=== PATIENT | male | born 1955 | race Caucasian/White ===

== ENCOUNTER 2017-10-25 08:32 | Inpatient (IN) | payer OTHER ==
[~2017-10-25] VITALS: Ht 188 cm; Wt 72.5 kg
[~2017-10-25 08:32] MED LIST: BACT800T5 PO; CEPH500C3 PO; LITH450 PO
[2017-10-25 08:42] VITALS: BP 215/111; PULSE 118; RESP 16; TEMP 99; O2SAT 95
[2017-10-25 09:29] VITALS: O2SAT 100
--- NOTE | 2017-10-25 09:38 | PD ---
HPI Chief Complaint: Psychiatric Symptoms Time Seen by Provider: 09:23 Travel History International Travel<30 days: No Contact w/Intl Traveler<30days: No Traveled to known affect area: No History of Present Illness HPI The patient is a 62-year-old male who presents to the emergency department for insomnia and anxiety. The patient has a history of bipolar affective disorder, has been off of lithium for 1-1/2 years. The patient was doing well until several months ago when he developed increasing anxiety. He notes inability to sleep for approximately 1 week with increasing anxiety. He denies any suicidal or homicidal ideation. He denies any alcohol ingestion, does use marijuana occasionally and used one "strip" of Suboxone earlier this week. He does have a history of pill abuse, but denies any history of IV drug abuse. He denies any hallucinations or delusions, however, states since the insomnia started with inability to sleep for 1 week the colors and the TV appeared different. He does not currently see a psychiatrist or primary physician on an outpatient basis. He denies any chest pain or shortness of breath. Symptoms are moderate, possibly exacerbated by history of bipolar affective disorder and anxiety. PFSH Past Medical History Asthma: No Autoimmune Disease: No Blood Disorders: No Bipolar Disorder: Yes Anxiety: Yes Depression: Yes Cardiovascular Problems: Yes COPD: No Cerebrovascular Accident: No Diminished Hearing: No Endocrine: No Genitourinary: No Immune Disorder: No Musculoskeletal: Yes (HX FX PELVIS, FX RIGHT ARM) Neurologic: No Psychiatric: Yes (SCHIZOAFFECTIVE ) Reproductive: No Respiratory: No Integumentary: Yes (CONTACT DERMATITIS) Migraines: No Pneumonia: Yes Sickle Cell Disease: No Sleep Apnea: No Thyroid Disease: No Past Surgical History Abdominal Surgery: No Cardiac Surgery: No Ear Surgery: No Endocrine Surgery: No Eye Surgery: No Genitourinary Surgery: No Gynecologic Surgery: No Oral Surgery: No Thoracic Surgery: No Other Surgery: Yes Social History Alcohol Use: No (DENIES) Tobacco Use: Yes Substance Use: No (DENIES) Allergies-Medications (Allergen,Severity, Reaction): Coded Allergies: No Known Allergies (Verified Adverse Reaction, Unknown, 10/25/17) Reported Meds & Prescriptions Reported Meds & Active Scripts Active Review of Systems Except as stated in HPI: all other systems reviewed are Neg HENT: No: Lightheadedness Cardiovascular: No: Chest Pain or Discomfort Respiratory: No: Shortness of Breath Gastrointestinal: No: Nausea, Vomiting, Abdominal Pain Psychiatric: Positive: Anxiety, Mood Disorder, Substance Abuse (Occasional marijuana use), Other (Insomnia), No: Suicidal Ideations, Homicidal Ideation Physical Exam Narrative GENERAL: Awake, alert, pleasant 62-year-old male who appears his stated age and is in no acute respiratory distress. Mildly agitated and anxious. SKIN: Focused skin assessment warm/dry. HEAD: Atraumatic. Normocephalic. EYES: Mild injection. No icterus noted. ENT: No nasal bleeding or discharge. Mucous membranes pink and moist. NECK: Trachea midline. No JVD. CARDIOVASCULAR: Regular, tachycardic with a heart rate of 115. RESPIRATORY: No accessory muscle use. Clear to auscultation. Breath sounds equal bilaterally. GASTROINTESTINAL: Abdomen soft, non-tender, nondistended. No rebound tenderness. MUSCULOSKELETAL: No obvious deformities. No clubbing. No cyanosis. No edema. NEUROLOGICAL: Awake and alert. No obvious cranial nerve deficits. Motor grossly within normal limits. Normal speech. Nonfocal. PSYCHIATRIC: Appears anxious. Data Data Last Documented VS Vital Signs Date Time Temp Pulse Resp B/P (MAP) Pulse Ox O2 Delivery O2 Flow Rate FiO2 10/25/17 10:34 103 16 160/96 (117) 93 Room Air 10/25/17 08:42 99.0 Orders Orders Complete Blood Count With Diff (10/25/17 09:13) Comprehensive Metabolic Panel (10/25/17 09:13) Psych Screen (10/25/17 09:13) Drug Screen, Random Urine (10/25/17 09:13) Alcohol (Ethanol) (10/25/17 09:13) Electrocardiogram (10/25/17 09:13) Ecg Monitoring (10/25/17 09:13) Oximetry (10/25/17 09:13) Lorazepam Inj (Ativan Inj) (10/25/17 09:45) Thyroid Stimulating Hormone (10/25/17 09:38) Lorazepam Inj (Ativan Inj) (10/25/17 10:45) Labs Laboratory Tests Test 10/25/17 09:40 White Blood Count 9.7 TH/MM3 Red Blood Count 5.17 MIL/MM3 Hemoglobin 17.0 GM/DL Hematocrit 48.3 % Mean Corpuscular Volume 93.3 FL Mean Corpuscular Hemoglobin 32.9 PG Mean Corpuscular Hemoglobin Concent 35.2 % Red Cell Distribution Width 13.1 % Platelet Count 184 TH/MM3 Mean Platelet Volume 8.7 FL Neutrophils (%) (Auto) 71.7 % Lymphocytes (%) (Auto) 18.1 % Monocytes (%) (Auto) 9.9 % Eosinophils (%) (Auto) 0.1 % Basophils (%) (Auto) 0.2 % Neutrophils # (Auto) 6.9 TH/MM3 Lymphocytes # (Auto) 1.7 TH/MM3 Monocytes # (Auto) 1.0 TH/MM3 Eosinophils # (Auto) 0.0 TH/MM3 Basophils # (Auto) 0.0 TH/MM3 CBC Comment DIFF FINAL Differential Comment Blood Urea Nitrogen 9 MG/DL Creatinine 0.82 MG/DL Random Glucose 118 MG/DL Total Protein 8.6 GM/DL Albumin 4.2 GM/DL Calcium Level 9.4 MG/DL Alkaline Phosphatase 88 U/L Aspartate Amino Transf (AST/SGOT) 28 U/L Alanine Aminotransferase (ALT/SGPT) 26 U/L Total Bilirubin 0.7 MG/DL Sodium Level 137 MEQ/L Potassium Level 3.5 MEQ/L Chloride Level 100 MEQ/L Carbon Dioxide Level 29.3 MEQ/L Anion Gap 8 MEQ/L Estimat Glomerular Filtration Rate 96 ML/MIN Thyroid Stimulating Hormone 3rd Gen 0.581 uIU/ML Ethyl Alcohol Level LESS THAN 3 MG/DL MDM Medical Decision Making Medical Screen Exam Complete: Yes Emergency Medical Condition: Yes Medical Record Reviewed: Yes Interpretation(s) Laboratory Tests Test 10/25/17 09:40 White Blood Count 9.7 TH/MM3 Red Blood Count 5.17 MIL/MM3 Hemoglobin 17.0 GM/DL Hematocrit 48.3 % Mean Corpuscular Volume 93.3 FL Mean Corpuscular Hemoglobin 32.9 PG Mean Corpuscular Hemoglobin Concent 35.2 % Red Cell Distribution Width 13.1 % Platelet Count 184 TH/MM3 Mean Platelet Volume 8.7 FL Neutrophils (%) (Auto) 71.7 % Lymphocytes (%) (Auto) 18.1 % Monocytes (%) (Auto) 9.9 % Eosinophils (%) (Auto) 0.1 % Basophils (%) (Auto) 0.2 % Neutrophils # (Auto) 6.9 TH/MM3 Lymphocytes # (Auto) 1.7 TH/MM3 Monocytes # (Auto) 1.0 TH/MM3 Eosinophils # (Auto) 0.0 TH/MM3 Basophils # (Auto) 0.0 TH/MM3 CBC Comment DIFF FINAL Differential Comment Blood Urea Nitrogen 9 MG/DL Creatinine 0.82 MG/DL Random Glucose 118 MG/DL Total Protein 8.6 GM/DL Albumin 4.2 GM/DL Calcium Level 9.4 MG/DL Alkaline Phosphatase 88 U/L Aspartate Amino Transf (AST/SGOT) 28 U/L Alanine Aminotransferase (ALT/SGPT) 26 U/L Total Bilirubin 0.7 MG/DL Sodium Level 137 MEQ/L Potassium Level 3.5 MEQ/L Chloride Level 100 MEQ/L Carbon Dioxide Level 29.3 MEQ/L Anion Gap 8 MEQ/L Estimat Glomerular Filtration Rate 96 ML/MIN Thyroid Stimulating Hormone 3rd Gen 0.581 uIU/ML Ethyl Alcohol Level LESS THAN 3 MG/DL Differential Diagnosis Differential diagnosis includes bipolar affective disorder, schizoaffective disorder, anxiety, insomnia, sympathomimetic crisis, hyperthyroidism. Narrative Course IV was established, labs were drawn and sent, and the patient was placed on cardiac telemetry monitoring and continuous pulse oximetry monitoring. The patient was administered Ativan 1 mg intravenously. TSH was sent to lab. Psychiatric screen was ordered. Labs are unremarkable. Disposition as per psychiatry. Diagnosis Primary Impression: Bipolar disorder Qualified Codes: F31.9 - Bipolar disorder, unspecified Additional Impression: Insomnia Qualified Codes: G47.00 - Insomnia, unspecified Condition: Stable Curly Andrews MD Oct 25, 2017 09:38
[2017-10-25] MEDS ORDERED: LORazepam 2 MG/ML VIAL IV PUSH ONE ×2 (09:45→10:45)
[2017-10-25 10:08] LABS: AUTOMATED NEUTROPHIL # 6.9 TH/MM3 (1.8-7.7); BASOPHIL % 0.2 % (0.0-2.0); EOSINOPHIL % 0.1 % (0.0-4.0); HEMATOCRIT 48.3 % (39.0-51.0); LYMPH % 18.1 % (9.0-44.0); LYMPHOCYTE # 1.7 TH/MM3 (1.0-4.8); MEAN CELL VOLUME 93.3 FL (80.0-100.0); MEAN CORPUSCULAR HEMOGLOBIN 32.9 PG (27.0-34.0); MEAN CORPUSCULAR HGB CONC 35.2 % (32.0-36.0); MEAN PLATELET VOLUME 8.7 FL (7.0-11.0); MONO % 9.9 % (0.0-8.0); NEUT % 71.7 % (16.0-70.0); PLATELET COUNT 184 TH/MM3 (150-450); RED BLOOD COUNT 5.17 MIL/MM3 (4.50-5.90); RED CELL DISTRIBUTION WIDTH 13.1 % (11.6-17.2); WHITE BLOOD COUNT 9.7 TH/MM3 (4.0-11.0)
[2017-10-25 10:23] LABS: ALBUMIN 4.2 GM/DL (3.4-5.0); ALT (GPT) 26 U/L (12-78); AST (GOT) 28 U/L (15-37); BICARBONATE 29.3 MEQ/L (21.0-32.0); BLOOD UREA NITROGEN 9 MG/DL (7-18); CALCIUM 9.4 MG/DL (8.5-10.1); CHLORIDE 100 MEQ/L (98-107); CREATININE 0.82 MG/DL (0.60-1.30); GLOMERULAR FILTRATION RATE 96 ML/MIN (>89); GLUCOSE,RANDOM 118 MG/DL (74-106); SODIUM (NA) 137 MEQ/L (136-145)
[2017-10-25 10:26] LABS: ALKALINE PHOSPHATASE 88 U/L (45-117); TOTAL BILIRUBIN ADULT 0.7 MG/DL (0.2-1.0); TOTAL PROTEIN 8.6 GM/DL (6.4-8.2)
[2017-10-25 10:34] VITALS: BP 160/96; PULSE 103; RESP 16; O2SAT 93
[2017-10-25 18:15] VITALS: BP 160/77; PULSE 93; RESP 22; O2SAT 95
[2017-10-25] MEDS ORDERED: LORazepam 1 MG TAB PO ONE (19:30)
[2017-10-25] MEDS ORDERED: ACETAMINOPHEN 325 MG TAB PO ONE (23:30)
[2017-10-26 02:16] VITALS: BP 150/74; PULSE 72; RESP 16; O2SAT 95
[2017-10-26 07:00] VITALS: BP 138/74; PULSE 77; RESP 16; TEMP 98; O2SAT 96
[2017-10-26] MEDS ORDERED: LORazepam 1 MG TAB PO ONE (08:30)
[2017-10-26] MEDS ORDERED: MAGNESIUM HYDROXIDE SUSP 30 ML CUP PO PRN (09:15)
[2017-10-26] MEDS ORDERED: ALUMINUM/MAGNESIUM/SIMETH 30 ML CUP PO PRN (09:15)
[2017-10-26] MEDS ORDERED: hydrOXYzine HCL 50 MG TAB PO PRN (09:15)
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
[2017-10-26] MEDS: NICOTINE 21 MG/24 HR PATCH T-DERMAL SCH (12:18)
[2017-10-26] MEDS: REMOVE OLD PATCH T-DERMAL SCH (12:26)
[2017-10-26 13:44] VITALS: BP 155/90; PULSE 81; RESP 18; TEMP 98.4; O2SAT 96
[2017-10-26] MEDS: ACETAMINOPHEN 325 MG TAB PO PRN (17:46)
[2017-10-26 17:47] VITALS: BP 160/90; PULSE 98; RESP 18; TEMP 98.4; O2SAT 94
[2017-10-27 07:14] VITALS: BP 161/89; PULSE 85; RESP 18; TEMP 98.2; O2SAT 96
[2017-10-27] MEDS: NICOTINE 21 MG/24 HR PATCH T-DERMAL SCH (08:30)
[2017-10-27] MEDS ORDERED: LORazepam 2 MG/ML VIAL IM PRN (10:15)
--- NOTE | 2017-10-27 10:15 | HHI.HP ---
Provisional Diagnosis Admission Date Oct 26, 2017 at 09:13 [place]. 1. Bipolar disorder, presently depressed, severe, without psychotic features, with anxious distress Rule out comorbid anxiety disorder or anxiety disorder due to a substance 2. Cannabis use, rule out use disorder [place]. Deferred Certification of Person's Competence To Provide Express and Informed Consent I have personally examined Shane Beverly , a person being served at [facility] on, Oct 27, 2017 10:15. Express and informed consent means consent voluntarily given in writing, by a competent person, after sufficient explanation and disclosure of the subject matter involved to enable the person to make a knowing and willful decision without any element of force, fraud, deceit, duress, or other form of constraint or coercion. This person is 18 years of age or older, is not now known to be incompetent to consent to treatment with a guardian advocate, and does not have a health care surrogate or proxy currently making medical treatment decisions. I have found this person to be one of the following: [x] Competent to provide express and informed consent, as defined above, for voluntary admission to this facility and is competent to provide express and informed consent for treatment. He/she has the consistent capacity to make well reasoned, willful, and knowing decisions concerning his or her medical or mental health treatment. The person fully and consistently understands the purpose of the admission for examination/placement and is fully capable of personally exercising all rights assured under [place] Incompetent to provide express and informed consent to voluntary admission, and this is incompetent to provide express and informed consent to treatment. The person must be transferred to involuntary status and a petition for a guardian advocate filed with the Circuit Court. [] Refusing to provide express and informed consent to voluntary admission but is competent to provide express and informed consent for treatment. The person must be discharged or transferred to involuntary status. Form shall be completed within 24 hours of a person's arrival at the receiving facility and filed in the clinical record of each person: 1. Admitted on a voluntary basis 2. Permitted to provide express and informed consent to his/her own treatment 3. Allowed to transfer from involuntary to voluntary status 4. Prior to permitting a person to consent to his or her own treatment after having been previously found incompetent to consent to treatment. History of Present Illness Capacity: Has Capacity Psych Chief Complaint: Depression, anxiety HPI Mr. Beverly is a 62-year-old male with a reported history of bipolar disorder who presented to the emergency department voluntarily complaining of insomnia and anxiety. Patient was evaluated by the psychiatric nurse practitioner in the emergency department. Reviewing the electronic medical record, I note the patient was admitted here most recently under my care in April 2016 and left AGAINST MEDICAL ADVICE at that time. Patient seen and examined. Chart reviewed. Case discussed with nursing staff. On my examination today, the patient presents as extremely anxious and dysphoric. He is visibly shaking and tearful secondary to these factors. He reports that 9 days ago without clear trigger he began feeling increasingly anxious and depressed. Course has been worsening. He reports episodes of panic as well as more generalized anxiety. He endorses anhedonia and sleep disturbance. He reports that when he does sleep he has "weird dreams" and chills. He reports that he feels depressed and "pretty scared" presently, although he cannot say what he is scared of. He denies any SI or HI. No hypomanic or manic symptoms. He denies AVH. I can elicit no delusional material. Remainder of the psychiatric ROS is negative. No acute physical complaints. Past psychiatric history: The patient reports a history of bipolar disorder. He was previously on lithium but has been off psychotropic medications for the last year and a half. He is not currently under the care of a psychiatrist. His most recent psychiatric admission was here at [facility]. He denies a history of suicide attempts. Family history: The patient denies a family history of serious mental illness or suicide. Chemical dependency history: The patient admits to ongoing use of cannabis. No other substance use. Social history: Patient lives with his sister and mother. He has a daughter. He is high school educated. 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 He denies any or legal history. He denies any access to guns or firearms. He denies any history of physical, verbal or sexual abuse. Review of Systems Except as stated in HPI: all other systems reviewed are Neg Past Family Social History Coded Allergies: No Known Allergies (Verified Allergy, Unknown, 10/26/17) Past Medical History Patient denies any past medical history. Current Medications Medications (Trade) Dose Ordered Sig/Noa Route Start Time Stop Time Status Last Admin (Tylenol) 650 mg Q4H PRN PO 10/26/17 09:15 10/26/17 17:46 (Milk Of Magnesia Liq) 30 ml DAILY PRN PO 10/26/17 09:15 (Mag-Al Plus Susp Liq) 30 ml Q6H PRN PO 10/26/17 09:15 (Habitrol 21 Mg Patch.24 Hr) 1 patch DAILY T-DERMAL 10/26/17 09:15 10/27/17 08:30 (Atarax) 50 mg Q6H PRN PO 10/26/17 09:15 Future Hold Miscellaneous Information 1 DAILY T-DERMAL 10/27/17 09:00 Patient's Strengths (min. 2) In a monitored setting. Verbally fluent. Physical Exam Physical exam completed by ED provider. On my examination today, the patient appears to be in no acute physical distress. He is fairly tremulous, reportedly secondary to anxiety. No other motor abnormalities noted. I do note scars on left nose and cheek, reportedly from a history of skin cancer. Labs and vitals reviewed: Vital Signs Vital Signs Date Time Temp Pulse Resp B/P (MAP) Pulse Ox O2 Delivery O2 Flow Rate FiO2 10/27/17 07:14 98.2 85 18 161/89 (113) 96 10/26/17 07:00 Room Air Lab Results Item Value Date Time White Blood Count 9.7 TH/MM3 10/25/17 0940 Hemoglobin 17.0 GM/DL 10/25/17 0940 Platelet Count 184 TH/MM3 10/25/17 0940 Sodium Level 137 MEQ/L 10/27/17 0845 Potassium Level 3.7 MEQ/L 10/27/17 0845 Chloride Level 100 MEQ/L 10/27/17 0845 Carbon Dioxide Level 29.7 MEQ/L 10/27/17 0845 Blood Urea Nitrogen 17 MG/DL 10/27/17 0845 Creatinine 0.87 MG/DL 10/27/17 0845 Estimat Glomerular Filtration Rate 89 ML/MIN 10/27/17 0845 Aspartate Amino Transf (AST/SGOT) 28 U/L 10/25/17 0940 Alanine Aminotransferase (ALT/SGPT) 26 U/L 10/25/17 0940 Alkaline Phosphatase 88 U/L 10/25/17 0940 Thyroid Stimulating Hormone 3rd Gen 0.581 uIU/ML 10/25/17 0940 Urine Cannabinoids Screen POS H 10/26/17 0620 Ethyl Alcohol Level LESS THAN 3 MG/DL 10/25/17 0940 EKG sinus tach with QTcH 407ms, not prolonged. Mental Status Examination Appearance: Appropriate Consciousness: Alert Orientation: x4 Motor Activity: Normal gait Speech: Rapid Language: Adequate Fund of Knowledge: Adequate Attention and Concentration: Adequate Memory: Unremarkable Mood: Anxious, Other (depressed) Affect: Anxious, Other (tearful and dysphoric) Thought Process & Associations: Intact Thought Content: Appropriate Hallucination Type: None Delusion Type: None Suicidal Ideation: No Suicidal Plan: No Suicidal Intention: No Homicidal Ideation: No Homicidal Plan: No Homicidal Intention: No Insight: Adequate Judgment: Adequate Assessment & Plan Problem List: (1) Severe bipolar I disorder, most recent episode depressed with anxious distress ICD Codes: F31.4 - Bipolar disorder, current episode depressed, severe, without psychotic features (2) Use of cannabis ICD Codes: F12.90 - Cannabis use, unspecified, uncomplicated Assessment & Plan 62-year-old male with psychiatric history as detailed above presently voluntarily admitted to the inpatient psychiatric unit. On my examination today , the patient reports 9 days of worsening depression and anxiety without obvious trigger. Presently, the patient is extremely dysphoric and anxious, although he is denying SI or HI. He reports that he has never had this degree of anxious distress in the setting of a mood episode before, nor does he suffer from anxiety typically. Differential diagnosis includes bipolar disorder, presently depressed with anxious distress, comorbid anxiety disorder of recent onset, or anxiety disorder due to a substance, namely cannabis. TSH wnl. 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 Patient requires psychiatric hospitalization at this time for observation and stabilization. Admit inpatient. Voluntary status. Start lithium SR 450mg BID with plans to check a lithium level after the weekend. GFR and TSH wnl. Given the patient's acute anxious distress in setting of mood episode, will also start Seroquel 25mg BID, which could be titrated over the weekend to effect. Ativan as needed for anxiety, trazodone as needed for insomnia, Cogentin as needed for EPS. R/B/ A for medications discussed with patient. Consult to the hospitalist for arrhythmia noted on EKG. Vitals every shift. Counselor to see. Disposition planning. Estimated length of stay: 5-7 days. Discharge Planning Pending psychiatric stabilization. Request HC Surrog/Guard Advoc?: No Allan Mondragon MD Oct 27, 2017 10:15
[2017-10-27 10:21] LABS: BICARBONATE 29.7 MEQ/L (21.0-32.0); BLOOD UREA NITROGEN 17 MG/DL (7-18); CALCIUM 9.5 MG/DL (8.5-10.1); CHLORIDE 100 MEQ/L (98-107); CREATININE 0.87 MG/DL (0.60-1.30); GLOMERULAR FILTRATION RATE 89 ML/MIN (>89); GLUCOSE,RANDOM 101 MG/DL (74-106); SODIUM (NA) 137 MEQ/L (136-145)
[2017-10-27 10:22] LABS: CHOLESTEROL 178 MG/DL (120-200)
[2017-10-27 10:25] LABS: CHOLESTEROL/ HDL RATIO 2.74 RATIO; HDL CHOLESTEROL 64.9 MG/DL (40.0-60.0); LDL CHOLESTEROL 98 MG/DL (0-99); TRIGLYCERIDES 78 MG/DL (42-150)
[2017-10-27] MEDS: LITHIUM CARBONATE 450 MG CONTROLLED RELEASE TAB PO SCH ×2 (11:54→18:00)
[2017-10-27] MEDS: LORazepam 1 MG TAB PO PRN (11:54)
[2017-10-27] MEDS ORDERED: BENZTROPINE MESYLATE 2 MG/2 ML VIAL IM PRN (12:00)
[2017-10-27] MEDS ORDERED: BENZTROPINE MESYLATE 1 MG TAB PO PRN (12:00)
[2017-10-27 16:34] LABS: HEMOGLOBIN A1C 5.2 % (4.3-6.0)
[2017-10-27 18:45] VITALS: BP 145/88; RESP 16; TEMP 97.9; O2SAT 96
--- NOTE | 2017-10-27 20:21 | PD.CONS ---
HPI Service [facility] Hospitalists Consult Requested By Psychiatry Reason for Consult Abnormal EKG Primary Care Physician No Primary Care Physician Diagnoses: History of Present Illness Mr. Beverly is a pleasant 62-year-old male with a depression, bipolar disorder who was admitted psychiatry unit due to severe bipolar disorder along with depression and anxiety. Hospitalist service was consulted for abnormal EKG. At the time of this interview, patient denies any chest pain, shortness of breath, fever or chills. He denies any cough, abdominal pain. No changes in bowel or bladder habits. Review of Systems Except as stated in HPI: all other systems reviewed are Neg Past Family Social History Allergies: Coded Allergies: No Known Allergies (Verified Allergy, Unknown, 10/26/17) Past Medical History Depression, panic attack, insomnia, contact dermatitis. Past Surgical History Right knee surgery in 1974 Reported Medications Current Medications Medications (Trade) Dose Ordered Sig/Noa Route Start Time Stop Time Status Last Admin (Tylenol) 650 mg Q4H PRN PO 10/26/17 09:15 10/26/17 17:46 (Milk Of Magnesia Liq) 30 ml DAILY PRN PO 10/26/17 09:15 (Mag-Al Plus Susp Liq) 30 ml Q6H PRN PO 10/26/17 09:15 (Habitrol 21 Mg Patch.24 Hr) 1 patch DAILY T-DERMAL 10/26/17 09:15 10/27/17 08:30 Miscellaneous Information 1 DAILY T-DERMAL 10/27/17 09:00 (Ativan) 1 mg Q6H PRN PO 10/27/17 10:15 10/27/17 11:54 (Ativan Inj) 1 mg Q6H PRN IM 10/27/17 10:15 (Eskalith Sr) 450 mg BIDPC PO 10/27/17 10:30 10/27/17 18:00 (SEROquel) 25 mg BID PO 10/27/17 21:00 (Desyrel) 50 mg HS PRN PO 10/27/17 21:00 (Cogentin) 1 mg Q12HR PRN PO 10/27/17 12:00 (Cogentin Inj) 1 mg Q12HR PRN IM 10/27/17 12:00 Family History Father was alcoholic. Mother is 92 and in good health. Social History Patient smokes about 10 cigarettes a day. He admits to smoking marijuana. Denies using any illicit drugs or alcohol. Physical Exam Vital Signs Vital Signs Date Time Temp Pulse Resp B/P (MAP) Pulse Ox O2 Delivery O2 Flow Rate FiO2 10/27/17 18:45 97.9 16 145/88 (107) 96 10/27/17 07:14 98.2 85 18 161/89 (113) 96 Physical Exam GENERAL: This is a well-nourished, well-developed patient, in no apparent distress. SKIN: No rashes, ecchymoses or lesions. Warm and dry. HEAD: Atraumatic. Normocephalic. No temporal or scalp tenderness. EYES: Pupils equal round and reactive. No injection or drainage. ENT: Nose without bleeding, purulent drainage or septal hematoma. Airway patent. NECK: Trachea midline. No lymphadenopathy. Supple, nontender, no meningeal signs. CARDIOVASCULAR: Regular rate and rhythm without murmurs, gallops, or rubs. No JVD. RESPIRATORY: Clear to auscultation. Breath sounds equal bilaterally. No wheezes , rales, or rhonchi. GASTROINTESTINAL: Abdomen soft, non-tender, nondistended. No guarding. MUSCULOSKELETAL: Extremities without clubbing, cyanosis, or edema. NEUROLOGICAL: Awake and alert. Cranial nerves II through XII intact. No focal neurological deficits. Normal speech. Laboratory Laboratory Tests Test 10/27/17 08:45 Blood Urea Nitrogen 17 Creatinine 0.87 Random Glucose 101 Calcium Level 9.5 Sodium Level 137 Potassium Level 3.7 Chloride Level 100 Carbon Dioxide Level 29.7 Anion Gap 7 Estimat Glomerular Filtration Rate 89 Hemoglobin A1c 5.2 Triglycerides Level 78 Cholesterol Level 178 LDL Cholesterol 98 HDL Cholesterol 64.9 Cholesterol/HDL Ratio 2.74 Result Diagram: 10/25/17 0940 10/27/17 0845 Assessment and Plan Problem List: (1) Sinus tachycardia by electrocardiogram ICD Code: R00.0 - Tachycardia, unspecified (2) Severe bipolar I disorder, most recent episode depressed with anxious distress ICD Code: F31.4 - Bipolar disorder, current episode depressed, severe, without psychotic features Assessment and Plan Mr. Beverly is a pleasant 62-year-old male with a history of bipolar disorder, panic attack who was admitted to the psychiatric unit due to depression, panic attack, insomnia. Hospitalist service was consulted for abnormal EKG. -Sinus tachycardia -Sinus tachycardia is likely due to anxiety and/or physiologic. -Some supraventricular premature complexes present. Treatment is not necessary. Patient is asymptomatic -We will check magnesium level. Ideally would like to keep potassium around 4 and magnesium around 2.0. -We will provide potassium supplement 20 mEq once a day for 3 days. -We will provide magnesium supplement if magnesium level below 2.0. -TSH is within normal range. -BMP, Mg level on 10/31/2017. -IF tachycardia is persistent, we may consider beta estrada such as atenolol or metoprolol. -Depression, anxiety -Bipolar disorder -Management per psychiatry. Thank you for the consult. We will continue to follow this patient with you. Gaviota Bermudez DO Oct 27, 2017 20:21
[2017-10-27] MEDS: QUEtiapine FUMARATE 25 MG TAB PO SCH (21:20)
[2017-10-27] MEDS: traZODone HCL 50 MG TAB PO PRN (21:20)
[2017-10-28 06:00] VITALS: BP 157/100; PULSE 91; RESP 18; TEMP 98; O2SAT 95
[2017-10-28] MEDS: POTASSIUM CHLORIDE 20 MEQ CONTROLLED RELEASE TAB PO SCH (08:29)
[2017-10-28] MEDS: QUEtiapine FUMARATE 25 MG TAB PO SCH ×2 (08:29→21:30)
[2017-10-28] MEDS: LITHIUM CARBONATE 450 MG CONTROLLED RELEASE TAB PO SCH ×2 (08:29→18:04)
[2017-10-28] MEDS: REMOVE OLD PATCH T-DERMAL SCH (09:00)
[2017-10-28] MEDS: NICOTINE 21 MG/24 HR PATCH T-DERMAL SCH (09:00)
[2017-10-28 11:30] VITALS: BP 148/90; PULSE 92; RESP 18
--- NOTE | 2017-10-28 15:03 | HHI.PR ---
Subjective Remarks Follow-up visit tachycardia, elevated BP. Patient seen and examined today. Patient states he is doing well however his anxiety has been ongoing. States that he has vivid dreams he was started on lithium recently. Voices pressured, speech is fast. Denies pain and discomfort. Denies SOB/ dyspnea. Denies chest pain, palpitations, headaches, dizziness. Denies fevers, chills, n/v/d. Denies dysuria. Objective Vitals Vital Signs Date Time Temp Pulse Resp B/P (MAP) Pulse Ox O2 Delivery O2 Flow Rate FiO2 10/28/17 11:30 92 18 148/90 (109) 10/28/17 06:00 98.0 91 18 157/100 (119) 95 10/27/17 18:45 97.9 16 145/88 (107) 96 I/O 10/27/17 10/27/17 10/27/17 10/28/17 10/28/17 10/28/17 07:00 15:00 23:00 07:00 15:00 23:00 Intake Total 360 ml Balance 360 ml Intake Oral 360 ml # Voids 2 Result Diagram: 10/25/17 0940 10/27/17 0845 Objective Remarks GENERAL: This is a well-nourished, well-developed patient, in no apparent distress. SKIN: Warm and dry. HEENT: Normocephalic. Pupils equal round and reactive. Nose without bleeding. Airway patent. NECK: Trachea midline. CARDIOVASCULAR: Tachycardia without murmurs, gallops, or rubs. RESPIRATORY: Clear to auscultation. Breath sounds equal bilaterally. No wheezes , rales, or rhonchi. GASTROINTESTINAL: Abdomen soft, non-tender, nondistended. Bowel Sounds normoactive x4. MUSCULOSKELETAL: Extremities without clubbing, cyanosis, or edema. NEUROLOGICAL: Awake and alert. Oriented to time, place, person. No focal neuro deficit. Moves all extremities. Pressured, fast speech. A/P Problem List: (1) Sinus tachycardia by electrocardiogram ICD Code: R00.0 - Tachycardia, unspecified (2) Severe bipolar I disorder, most recent episode depressed with anxious distress ICD Code: F31.4 - Bipolar disorder, current episode depressed, severe, without psychotic features Assessment and Plan 62-year-old male with a history of bipolar disorder, panic attack who was admitted to the psychiatric unit due to depression, panic attack, insomnia. Hospitalist service was consulted for abnormal EKG. Sinus tachycardia Elevated BP -EKG Some supraventricular premature complexes present. Treatment is not necessary. Patient is asymptomatic -Potassium supplement 20 mEq once a day for 3 days. -TSH, Magnesium, potassium levels are within normal -Tachycardia continues to be persistent this is probably related to anxiety and possible underlying HTN. -Will start lisinopril 5mg, metoprolol 12.5 mg twice daily this would also help elevated BP. Clonidine PRN -Monitor BP trend Depression, anxiety Bipolar disorder -Management per psychiatry. -Complaints of vivid dreams, started on lithium. Discussed with nursing. DVT prop ambulatory Ayaka Pedersen Oct 28, 2017 15:03
[2017-10-28] MEDS ORDERED: PILL SPLITTER OTHER PRN (15:15)
--- NOTE | 2017-10-28 15:22 | HHI.PYPN ---
Subjective Chief Complaint: Depression, anxiety Remarks Pt seen and discussed with staff. He has been depressed and very anxious. He reports that he feels both depressed and manic. He denies side effects. He c/o of poor sleep. No SI/HI Mental Status Examination Appearance: Appropriate Consciousness: Alert Orientation: x4 Motor Activity: Normal gait Speech: Rapid Language: Adequate Fund of Knowledge: Adequate Attention and Concentration: Adequate Memory: Unremarkable Mood: Anxious, Other (depressed) Affect: Anxious, Other (tearful and dysphoric) Thought Process & Associations: Intact Thought Content: Appropriate Hallucination Type: None Delusion Type: None Suicidal Ideation: No Suicidal Plan: No Suicidal Intention: No Homicidal Ideation: No Homicidal Plan: No Homicidal Intention: No Insight: Adequate Judgment: Adequate Results Vitals/IOs Vital Signs Date Time Temp Pulse Resp B/P (MAP) Pulse Ox O2 Delivery O2 Flow Rate FiO2 10/28/17 11:30 92 18 148/90 (109) 10/28/17 06:00 98.0 95 10/26/17 07:00 Room Air Assessment & Plan Problem List: (1) Severe bipolar I disorder, most recent episode depressed with anxious distress ICD Codes: F31.4 - Bipolar disorder, current episode depressed, severe, without psychotic features (2) Use of cannabis ICD Codes: F12.90 - Cannabis use, unspecified, uncomplicated Assessment & Plan Continue titration schedule. Estimated LOS: days Justification for Cont. Inpt. risk of decompensation Request HC Surrog/Guard Advoc?: No Luisa Macias MD Oct 28, 2017 15:22
[2017-10-28] MEDS ORDERED: METOPROLOL TARTRATE 25 MG TAB PO ONE ×2 (17:15→18:00)
[2017-10-28] MEDS ORDERED: cloNIDine HCL 0.1 MG TAB PO PRN (17:15)
[2017-10-28 18:05] VITALS: BP 183/100; PULSE 89; RESP 16; TEMP 97.9; O2SAT 96
[2017-10-28 19:50] VITALS: BP 173/103
[2017-10-28] MEDS: METOPROLOL TARTRATE 25 MG TAB PO SCH (21:30)
--- NOTE | 2017-10-28 23:23 | EKG ---
Date Performed: 10/27/2017 Time Performed: 10:09:41 PTAGE: 62 years EKG: SINUS TACHYCARDIA WITH OCCASIONAL SUPRAVENTRICULAR PREMATURE COMPLEXES ABNORMAL RHYTHM ECG PREVIOUS TRACING : 01/20/2005 09.16 Since the prior tracing, there has been no significant pacheco DOCTOR: Davy Mix Interpretating Date/Time 10/28/2017 23:22:37
[2017-10-29 01:31] VITALS: BP 130/70; PULSE 65
[2017-10-29] MEDS: traZODone HCL 50 MG TAB PO PRN ×2 (01:31→21:08)
[2017-10-29] MEDS: ACETAMINOPHEN 325 MG TAB PO PRN ×2 (01:32→21:09)
[2017-10-29 06:00] VITALS: BP 128/65; PULSE 65; RESP 17; TEMP 97.5; O2SAT 95
[2017-10-29] MEDS: QUEtiapine FUMARATE 25 MG TAB PO SCH ×2 (08:22→21:09)
[2017-10-29] MEDS: LITHIUM CARBONATE 450 MG CONTROLLED RELEASE TAB PO SCH ×2 (08:22→17:43)
[2017-10-29] MEDS: POTASSIUM CHLORIDE 20 MEQ CONTROLLED RELEASE TAB PO SCH (08:22)
[2017-10-29] MEDS: LISINOPRIL 5 MG TAB PO SCH (08:22)
[2017-10-29] MEDS: METOPROLOL TARTRATE 25 MG TAB PO SCH ×2 (08:23→21:08)
[2017-10-29] MEDS: REMOVE OLD PATCH T-DERMAL SCH (09:00)
[2017-10-29] MEDS: NICOTINE 21 MG/24 HR PATCH T-DERMAL SCH (09:00)
[2017-10-29 09:30] VITALS: BP 133/84; PULSE 82
--- NOTE | 2017-10-29 13:20 | HHI.PR ---
Subjective Remarks Follow-up visit for hypertension and tachycardia. Patient seen and examined today in outside patio, he reports a right leg cramp this morning, none since then. She denies any palpitations, chest pains, lightheadedness, dizziness, nausea, vomiting, headache, diarrhea, SOB or cough. He reports that he is still bored and that he is still depressed. Objective Vitals Vital Signs Date Time Temp Pulse Resp B/P (MAP) Pulse Ox O2 Delivery O2 Flow Rate FiO2 10/29/17 09:30 82 133/84 (100) 10/29/17 06:00 97.5 65 17 128/65 (86) 95 10/29/17 01:31 65 130/70 (90) 10/28/17 19:50 173/103 (126) 10/28/17 18:05 97.9 89 16 183/100 (127) 96 I/O 10/28/17 10/28/17 10/28/17 10/29/17 10/29/17 10/29/17 07:00 15:00 23:00 07:00 15:00 23:00 Intake Total 550 ml Balance 550 ml Intake Oral 550 ml # Voids 2 Result Diagram: 10/25/17 0940 10/27/17 0845 Objective Remarks GENERAL: This is a well-nourished, well-developed patient, in no apparent distress. SKIN: Warm and dry. HEENT: Normocephalic. Pupils equal round and reactive. Nose without bleeding. Airway patent. NECK: Trachea midline. CARDIOVASCULAR: Regular rate and rhythm without murmurs, gallops, or rubs. RESPIRATORY: Clear to auscultation. Breath sounds equal bilaterally. No wheezes , rales, or rhonchi. GASTROINTESTINAL: Abdomen soft, non-tender, nondistended. Bowel Sounds normoactive x4. MUSCULOSKELETAL: Extremities without clubbing, cyanosis, or edema. NEUROLOGICAL: Awake and alert. Oriented to time, place, person. No focal neuro deficit. Moves all extremities. A/P Problem List: (1) Sinus tachycardia by electrocardiogram ICD Code: R00.0 - Tachycardia, unspecified (2) Severe bipolar I disorder, most recent episode depressed with anxious distress ICD Code: F31.4 - Bipolar disorder, current episode depressed, severe, without psychotic features Assessment and Plan 62-year-old male with a history of bipolar disorder, panic attack who was admitted to the psychiatric unit due to depression, panic attack, insomnia. Hospitalist service was consulted for abnormal EKG. Sinus tachycardia Elevated BP -EKG Some supraventricular premature complexes present. Treatment is not necessary. Patient is asymptomatic -Potassium supplement 20 mEq once a day for 3 days. -TSH, Magnesium, potassium levels are within normal -Tachycardia probably related to anxiety and possible underlying HTN. -Continue lisinopril 5mg and metoprolol 12.5 mg BID. Clonidine PRN - HR and BP stable. Depression, anxiety Bipolar disorder -Management per psychiatry. -Complaints of vivid dreams, started on lithium. Discussed with nursing. DVT prop ambulatory [facility] will sign off, please reconsult if needed. Eduardo Alba Oct 29, 2017 13:20
--- NOTE | 2017-10-29 15:51 | HHI.PYPN ---
Subjective Chief Complaint: Depression, anxiety Remarks Pt seen and discussed with staff. He has been out of room more today and less dysphoric.He reports that he slept better with higher dose of seroquel. He c/o of anhedonia and low energy and motivation. Compliant with medications. No SI/HI Mental Status Examination Appearance: Appropriate Consciousness: Alert Orientation: x4 Motor Activity: Normal gait Speech: Rapid Language: Adequate Fund of Knowledge: Adequate Attention and Concentration: Adequate Memory: Unremarkable Mood: Anxious, Other (depressed) Affect: Sad, Anxious Thought Process & Associations: Intact Thought Content: Appropriate Hallucination Type: None Delusion Type: None Suicidal Ideation: No Suicidal Plan: No Suicidal Intention: No Homicidal Ideation: No Homicidal Plan: No Homicidal Intention: No Insight: Fair Judgment: Adequate Results Vitals/IOs Vital Signs Date Time Temp Pulse Resp B/P (MAP) Pulse Ox O2 Delivery O2 Flow Rate FiO2 10/29/17 09:30 82 133/84 (100) 10/29/17 06:00 97.5 17 95 10/26/17 07:00 Room Air Assessment & Plan Problem List: (1) Severe bipolar I disorder, most recent episode depressed with anxious distress ICD Codes: F31.4 - Bipolar disorder, current episode depressed, severe, without psychotic features (2) Use of cannabis ICD Codes: F12.90 - Cannabis use, unspecified, uncomplicated Assessment & Plan Continue current tx plan. Estimated LOS: days Justification for Cont. Inpt. risk of decompensation Request HC Surrog/Guard Advoc?: Luisa Travis MD Oct 29, 2017 15:51
[2017-10-29 16:59] VITALS: BP 126/79; PULSE 83; RESP 18; TEMP 97.7; O2SAT 97
[2017-10-30 05:48] VITALS: BP 91/51; PULSE 68; RESP 18; TEMP 98.2; O2SAT 95
[2017-10-30] MEDS: LITHIUM CARBONATE 450 MG CONTROLLED RELEASE TAB PO SCH ×2 (09:05→18:08)
[2017-10-30] MEDS: POTASSIUM CHLORIDE 20 MEQ CONTROLLED RELEASE TAB PO SCH (09:05)
[2017-10-30] MEDS: QUEtiapine FUMARATE 25 MG TAB PO SCH (09:06)
[2017-10-30] MEDS: NICOTINE 21 MG/24 HR PATCH T-DERMAL SCH (09:06)
[2017-10-30] MEDS: REMOVE OLD PATCH T-DERMAL SCH (09:09)
[2017-10-30] MEDS: LISINOPRIL 5 MG TAB PO SCH (09:11)
[2017-10-30] MEDS: METOPROLOL TARTRATE 25 MG TAB PO SCH ×2 (09:11→20:55)
[2017-10-30] MEDS: LORazepam 1 MG TAB PO PRN (09:21)
[2017-10-30] MEDS: ACETAMINOPHEN 325 MG TAB PO PRN (09:42)
--- NOTE | 2017-10-30 11:48 | HHI.PYPN ---
Subjective Chief Complaint: Depression, anxiety Remarks Patient seen and examined with nurse. Chart reviewed. Case discussed with nursing staff who reports the patient slept poorly overnight and was quite anxious this morning. Case discussed with counselor. On my examination today, the patient continues to say that he feels quite depressed. He says repeatedly "this is not like me" and seems distressed by how depressed he feels. He does have less anxious distress today versus our contact before the weekend. Sleep is reportedly poor, and patient would like to adjust pharmacotherapy to target this. He reports that he is participating in groups and finds them helpful. He denies side effects from medications and is agreeable to titration of Seroquel for mood stabilization and sleep. No physical complaints. Review of Systems Except as stated in HPI: all other systems reviewed are Neg Mental Status Examination Appearance: Appropriate Consciousness: Alert Orientation: x4 Motor Activity: Other (no motor abnormalities noted) Speech: Unremarkable Language: Adequate Fund of Knowledge: Adequate Attention and Concentration: Adequate Memory: Unremarkable Mood: Anxious (decreased today), Other (remains depressed) Affect: Sad Thought Process & Associations: Intact Thought Content: Appropriate Hallucination Type: None Delusion Type: None Suicidal Ideation: No Suicidal Plan: No Suicidal Intention: No Homicidal Ideation: No Homicidal Plan: No Homicidal Intention: No Insight: Adequate Judgment: Adequate Results Labs Labs reviewed. Vitals/IOs Vital Signs Date Time Temp Pulse Resp B/P (MAP) Pulse Ox O2 Delivery O2 Flow Rate FiO2 10/30/17 05:48 98.2 68 18 91/51 (64) 95 10/26/17 07:00 Room Air Assessment & Plan Problem List: (1) Severe bipolar I disorder, most recent episode depressed with anxious distress ICD Codes: F31.4 - Bipolar disorder, current episode depressed, severe, without psychotic features (2) Use of cannabis ICD Codes: F12.90 - Cannabis use, unspecified, uncomplicated Assessment & Plan Titrate Seroquel to 50mg qAM and 100mg qHS for mood stabilization and sleep. Plan for additional titration of this medication to effect and as tolerated. I will additionally replace the patient's trazodone p.r.n. with Seroquel 50mg qHS p.r.n. insomnia. Continue lithium as ordered and check a level in the morning; plan to adjust dose to bring level within the therapeutic range. R/B/A for med changes d/w patient. Continue to monitor on an inpatient unit. Continue other medications and care as ordered. Justification for Cont. Inpt. Medication changes. High risk for decompensation in less restrictive environment. Discharge Planning Pending psychiatric stabilization. Anticipate discharge by the end of the week. Request HC Surrog/Guard Advoc?: No Allan Mondragon MD Oct 30, 2017 11:48
[2017-10-30 15:13] VITALS: BP 157/81
[2017-10-30 15:27] VITALS: BP 157/81; PULSE 103; RESP 18; TEMP 98; O2SAT 100
[2017-10-30] MEDS ORDERED: QUEtiapine FUMARATE 100 MG TAB PO SCH (21:00)
[2017-10-31] MEDS: QUEtiapine FUMARATE 25 MG TAB PO PRN (03:11)
[2017-10-31 06:31] VITALS: BP 169/83; PULSE 76; RESP 17; TEMP 97.8; O2SAT 96
[2017-10-31 08:34] LABS: BICARBONATE 26.6 MEQ/L (21.0-32.0); CALCIUM 10.1 MG/DL (8.5-10.1); CREATININE 0.68 MG/DL (0.60-1.30); MAGNESIUM 2.1 MG/DL (1.5-2.5)
[2017-10-31] MEDS: NICOTINE 21 MG/24 HR PATCH T-DERMAL SCH (09:00)
[2017-10-31] MEDS: QUEtiapine FUMARATE 25 MG TAB PO SCH (09:05)
[2017-10-31] MEDS: METOPROLOL TARTRATE 25 MG TAB PO SCH ×2 (09:06→21:05)
[2017-10-31] MEDS: LISINOPRIL 5 MG TAB PO SCH (09:06)
[2017-10-31] MEDS: LITHIUM CARBONATE 450 MG CONTROLLED RELEASE TAB PO SCH (09:06)
[2017-10-31] MEDS: REMOVE OLD PATCH T-DERMAL SCH (09:10)
--- NOTE | 2017-10-31 10:32 | HHI.PYPN ---
Subjective Chief Complaint: Depression, anxiety Remarks Patient seen and examined with nurse. Chart reviewed. Case discussed with nursing staff. No behavioral issues noted overnight. Case discussed in treatment team. On my exam, patient remains depressed, although this is improving. He is somewhat more hopeful and less withdrawn. He received a total of 150 mg of Seroquel yesterday evening and slept better with this dose. Remains somewhat anxious. Denies side effects from medications. No physical complaints. Review of Systems Except as stated in HPI: all other systems reviewed are Neg Mental Status Examination Appearance: Appropriate Consciousness: Alert Orientation: x4 Motor Activity: Other (no motor abnormalities noted) Speech: Unremarkable Language: Adequate Fund of Knowledge: Adequate Attention and Concentration: Adequate Memory: Unremarkable Mood: Anxious (decreasing), Other (mood remains depressed but is improving) Affect: Other (more full and reactive today) Thought Process & Associations: Intact Thought Content: Appropriate Hallucination Type: None Delusion Type: None Suicidal Ideation: No Suicidal Plan: No Suicidal Intention: No Homicidal Ideation: No Homicidal Plan: No Homicidal Intention: No Insight: Adequate Judgment: Adequate Results Labs Test 10/31/17 06:45 10/31/17 06:54 Blood Urea Nitrogen 18 MG/DL Creatinine 0.68 MG/DL Random Glucose 88 MG/DL Calcium Level 10.1 MG/DL Magnesium Level 2.1 MG/DL Sodium Level 136 MEQ/L Potassium Level 3.8 MEQ/L Chloride Level 101 MEQ/L Carbon Dioxide Level 26.6 MEQ/L Anion Gap 8 MEQ/L Estimat Glomerular Filtration Rate 119 ML/MIN [place] Level 0.6 MEQ/L Labs reviewed. [place] level 0.6, slightly subtherapeutic. Vitals/IOs Vital Signs Date Time Temp Pulse Resp B/P (MAP) Pulse Ox O2 Delivery O2 Flow Rate FiO2 10/31/17 06:31 97.8 76 17 169/83 (864) 10 Assessment & Plan Problem List: (1) Severe bipolar I disorder, most recent episode depressed with anxious distress ICD Codes: F31.4 - Bipolar disorder, current episode depressed, severe, without psychotic features (2) Use of cannabis ICD Codes: F12.90 - Cannabis use, unspecified, uncomplicated Assessment & Plan Titrate lithium to 450mg qAM and 600mg qHS for mood stabilization and plan to check a follow-up lithium level later in the week. Titrate Seroquel to 50mg qAM and 200mg qHS for mood stabilization and sleep. Continue to monitor on an inpatient unit. Continue other medications and care as ordered. Justification for Cont. Inpt. Medication changes. Risk for decompensation in less restrictive environment. Discharge Planning Possible discharge tomorrow, Monday Request HC Surrog/Guard Advoc?: No Allan Mondragon MD Oct 31, 2017 10:32
[2017-10-31] MEDS: ACETAMINOPHEN 325 MG TAB PO PRN (11:43)
--- NOTE | 2017-10-31 14:55 | PD.TTN ---
Patient Problems 1. Discharge planning 2. Medication compliance 3. Knowledge deficit 4. Lack of coping skills Progress Toward Goals Provider Present: Dr. Emily Mondragon Provider Input: 10/31/17 Still having meds adjusted and is anticipated to discharge end of this week or sooner Nurse(s) Input: 10/31/17 Ishan: med compliant, no behavioral issues Psychiatric Counselors Present: Felicity Rock LCSW Psych Therapist Input: 10/31/17 patient attended psychotherapy this weekend with this counselor, he appears motivated for treatment and is able to talk about compliance showing insight to tretment/medications Group Spec/RT/OT/ALAN Present: Yina Bustamante, GPS Group Spec/RT/OT/ALAN Input: 10/31/17 attends select groups Felicity Rock LCSW Oct 31, 2017 14:55
[2017-10-31 18:19] VITALS: BP 135/82; PULSE 91; RESP 18; TEMP 97.3; O2SAT 18
[2017-10-31] MEDS ORDERED: LITHIUM CARBONATE 300 MG SLOW RELEASE TAB PO SCH (21:00)
[2017-10-31] MEDS ORDERED: QUEtiapine FUMARATE 200 MG TAB PO SCH (21:00)
[2017-11-01] MEDS: QUEtiapine FUMARATE 25 MG TAB PO PRN (02:27)
[2017-11-01 06:03] VITALS: BP 112/68; PULSE 77; RESP 20; TEMP 97.8; O2SAT 95
[2017-11-01] MEDS ORDERED: LITHIUM CARBONATE 450 MG CONTROLLED RELEASE TAB PO SCH (09:00)
[2017-11-01] MEDS: REMOVE OLD PATCH T-DERMAL SCH (09:00)
[2017-11-01] MEDS: NICOTINE 21 MG/24 HR PATCH T-DERMAL SCH (09:15)
[2017-11-01] MEDS: QUEtiapine FUMARATE 25 MG TAB PO SCH (09:16)
[2017-11-01] MEDS: METOPROLOL TARTRATE 25 MG TAB PO SCH (09:17)
[2017-11-01] MEDS: LISINOPRIL 5 MG TAB PO SCH (09:17)
[2017-11-01] MEDS ORDERED: LITH450T PO (11:10)
[2017-11-01] MEDS ORDERED: LISI-519 PO (11:10)
[2017-11-01] MEDS ORDERED: LITH300T PO (11:10)
[2017-11-01] MEDS ORDERED: SERO300T PO (11:10)
[2017-11-01] MEDS ORDERED: METO25TA3 PO (11:10)
[2017-11-01] MEDS ORDERED: SERO25TA PO ×2 (11:10)
--- NOTE | 2017-11-01 11:10 | HHI.DS ---
Psychiatry Discharge Summary Inpatient Psychiatric care?: Yes Advance Directive: Yes Mental Health AdvanceDirective: No Health Care Proxy: No Admission Admission Date Oct 26, 2017 at 09:13 Admission Diagnosis: (1) Severe bipolar I disorder, most recent episode depressed with anxious distress ICD Code: F31.4 - Bipolar disorder, current episode depressed, severe, without psychotic features (2) Use of cannabis ICD Code: F12.90 - Cannabis use, unspecified, uncomplicated Brief History Mr. Beverly is a 62-year-old male with a reported history of bipolar disorder who presented to the emergency department voluntarily complaining of insomnia and anxiety. Patient was evaluated by the psychiatric nurse practitioner in the emergency department. Reviewing the electronic medical record, I note the patient was admitted here most recently under my care in April 2016 and left AGAINST MEDICAL ADVICE at that time. Patient seen and examined. Chart reviewed. Case discussed with nursing staff. On my examination today, the patient presents as extremely anxious and dysphoric. He is visibly shaking and tearful secondary to these factors. He reports that 9 days ago without clear trigger he began feeling increasingly anxious and depressed. Course has been worsening. He reports episodes of panic as well as more generalized anxiety. He endorses anhedonia and sleep disturbance. He reports that when he does sleep he has "weird dreams" and chills. He reports that he feels depressed and "pretty scared" presently, although he cannot say what he is scared of. He denies any SI or HI. No hypomanic or manic symptoms. He denies AVH. I can elicit no delusional material. Remainder of the psychiatric ROS is negative. No acute physical complaints. Past psychiatric history: The patient reports a history of bipolar disorder. He was previously on lithium but has been off psychotropic medications for the last year and a half. He is not currently under the care of a psychiatrist. His most recent psychiatric admission was here at [facility]. He denies a history of suicide attempts. Family history: The patient denies a family history of serious mental illness or suicide. Chemical dependency history: The patient admits to ongoing use of cannabis. No other substance use. Social history: Patient lives with his sister and mother. He has a daughter. He is high school educated. 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 He denies any or legal history. He denies any access to guns or firearms. He denies any history of physical, verbal or sexual abuse. Tobacco Use In Past 30 Days: 5 or More Cigarettes/Day Alcohol Use: Never Hospital Course Patient was admitted to a locked, inpatient psychiatric unit. A general medical consultation was obtained. Appropriate precautions were in place throughout patient's hospital stay. Patient was seen and examined on the unit by psychiatry and also visited by counselor. Psychotropic medications were adjusted. Patient tolerated medication changes well without side effects. Patient had improvement in presenting psychiatric symptomatology during the course of his hospital stay. There was no evidence of any suicidality or homicidality on the inpatient unit. The patient remained in good behavioral control and was compliant with medications. On the day of discharge: Patient seen and examined. Chart reviewed. Case discussed with nursing staff. No behavioral issues noted overnight. On my examination today, the patient feels ready to leave the inpatient psychiatric unit today. He denies any suicidal or homicidal ideation, intent or plan on direct questioning and contracts for safety. Mood is stable, and I can elicit no depressive or hypomanic/manic symptoms in this patient at this time. Anxiety level significantly reduced versus admission. He denies any audiovisual hallucinations. I can elicit no delusional material. There is no evidence of any impairment in reality construction. He denies side effects from medications. He has no physical complaints. Suicide and violence risk assessment on day of discharge both suggests lower imminent risk, and the patient's level of function is adequate for outpatient care. The patient has maximized benefit from this inpatient psychiatric hospital stay and will be discharged home today with psychiatric follow-up as arranged by counselor. Patient is also to follow-up with primary care. I have counseled the patient regarding warning signs for need to return to the psychiatric emergency room as part of the general safety plan. Results Blood Pressure 112 / 68 Vital Signs Date Time Temp Pulse Resp B/P (MAP) Pulse Ox O2 Delivery O2 Flow Rate FiO2 11/01/17 06:03 97.8 77 20 112/68 (83) 95 Laboratory Tests Test 10/31/17 06:45 10/31/17 06:54 Laboratory Results Test 10/27/17 08:45 10/31/17 06:54 Cholesterol Level 178 MG/DL (120-200) HDL Cholesterol 64.9 MG/DL (40.0-60.0) Hemoglobin A1c 5.2 % (4.3-6.0) LDL Cholesterol 98 MG/DL (0-99) Triglycerides Level 78 MG/DL (42-150) [place] Level 0.6 MEQ/L (0.5-1.5) Summary of Procedures None done Imaging None done Pending results at discharge: No Medications # of Antipsychotic meds at D/C: 1 Approp Antipsych med options 1 - Minimum of three failed multiple trials of monotherapy. 2 - Documented plan to taper to monotherapy due to previous use of multiple meds OR cross-taper in progress at D/C. 3 - Documentation of augmentation of Clozapine. 4 - Justification other than those listed in allowable values 1-3, document here : Discharge Discharge Date: Nov 01, 2017 Discharge Diagnosis: (1) Bipolar affective disorder, depressed, in remission Diagnosis: Principal ICD Code: F31.70 - Bipolar disorder, currently in remission, most recent episode unspecified (2) Use of cannabis Diagnosis: Secondary (counseled to quit) ICD Code: F12.90 - Cannabis use, unspecified, uncomplicated Pt Condition on Discharge: Stable Discharge Disposition: Discharge Home Discharge Instructions Diet Instructions: As Tolerated, No Restrictions Activities you can perform: Weight Bearing as Nabeel Scheduled Appointment: as per counselor's notes New Orders: LITHIUM (LI) - 3-5 Days New Medications: Quetiapine (Seroquel) 300 Mg Tab 300 MG PO HS for Mental Health for 15 Days, TAB 1 Refill Lisinopril (Lisinopril) 5 Mg Tab 5 MG PO DAILY for Health for 15 Days, #15 TAB 1 Refill [place] Carbonate ER ([place] Carbonate ER) 450 Mg Tab 450 MG PO DAILY for Mental Health for 15 Days, #15 TAB 1 Refill [place] Carbonate ER ([place] Carbonate ER) 300 Mg Tab 600 MG PO HS for Mental Health for 15 Days, TAB 1 Refill Metoprolol Tartrate (Metoprolol Tartrate) 25 Mg Tab 12.5 MG PO Q12HR for Health for 15 Days, TAB 1 Refill Quetiapine (Seroquel) 25 Mg Tab 50 MG PO DAILY for Mental Health for 15 Days, #30 TAB 1 Refill Quetiapine (Seroquel) 25 Mg Tab 50 MG PO HS PRN for INSOMNIA for 15 Days, TAB 1 Refill Discharge Time <= 30 minutes Mental Status Examination Appearance: Appropriate Consciousness: Alert Orientation: x4 Motor Activity: Normal gait, Other (No abnormal motor movements noted) Speech: Unremarkable Language: Adequate Fund of Knowledge: Adequate Attention and Concentration: Adequate Memory: Unremarkable Mood: Appropriate Affect: Appropriate (full and reactive) Thought Process & Associations: Intact, Logical, Goal directed, Linear Thought Content: Appropriate Hallucination Type: None Delusion Type: None Suicidal Ideation: No Suicidal Plan: No Suicidal Intention: No Homicidal Ideation: No Homicidal Plan: No Homicidal Intention: No Insight: Adequate Judgment: Adequate Discharge/Advance Care Plan Health Problems: (1) Severe bipolar I disorder, most recent episode depressed with anxious distress (2) Use of cannabis Goals to promote your health * To prevent worsening of your condition and complications * To maintain your health at the optimal level Directions to meet your goals Take your medications as prescribed Follow your dietary instruction Follow activity as directed Keep your appointments as scheduled Take your immunizations and boosters as scheduled If your symptoms worsen call your PCP, if no PCP go to Urgent Care Center or Emergency Room For 13/03 questions related to your inpatient stay or results of tests pending at discharge, please contact Dr. Allan Mondragon at Smoking is Dangerous to Your Health. Avoid second hand smoking Allan Mondragon MD Nov 01, 2017 11:10
== END 2017-11-01 13:15 | disposition home or self-care (01) | DRG 885 ==
LOC: NEPD 08:32 → NEDA 10-26 09:13 → H250 10-26 12:45 → H260 10-27 12:15
PROVIDERS: ADMIT Psychiatry & Neurology Psychiatry; ATTEND Psychiatry & Neurology Psychiatry
DX: F31.63 Bipolar disorder, current episode mixed, severe, without psychotic features (principal); R00.0 Tachycardia, unspecified; I10 Essential (primary) hypertension; G47.00 Insomnia, unspecified; I49.1 Atrial premature depolarization; F12.90 Cannabis use, unspecified, uncomplicated; F17.210 Nicotine dependence, cigarettes, uncomplicated
CPT/HCPCS: 80048; 80053; 80061; 80178; 80307; 83036; 83735; 84443; 85025; 93005; J2060

== ENCOUNTER 2017-11-04 11:11 | Emergency (ER) | payer OTHER ==
[~2017-11-04] VITALS: Ht 190.5 cm; Wt 75.0 kg
[~2017-11-04 11:11] MED LIST changes: -BACT800T5 PO; -CEPH500C3 PO; +LISI-519 PO; +LITH300T PO; -LITH450 PO; +LITH450T PO; +METO25TA3 PO; +SERO25TA PO; +SERO300T PO
[2017-11-04 11:17] VITALS: BP 142/85; PULSE 91; RESP 18; TEMP 98.3; O2SAT 96
--- NOTE | 2017-11-04 12:09 | PD ---
HPI . Insomnia Chief Complaint: Psychiatric Symptoms Time Seen by Provider: 11:41 Travel History International Travel<30 days: No Contact w/Intl Traveler<30days: No Traveled to known affect area: No History of Present Illness HPI Patient presents with the chief complaint of insomnia. He states that he was admitted to our psychiatric unit for a week from about 10/25-11/01 for treatment of bipolar disorder. He states that he did feel better and was discharged to home. He states that he has been compliant with his home treatment plan. He states that he did well for the first day that he was home but then started developing symptoms again consisting of insomnia, anxious feeling, decreased interest in activity and depressed mood. Symptoms have been growing progressively worse causing him to present us today for further treatment. PFSH Past Medical History Asthma: No Autoimmune Disease: No Blood Disorders: No Bipolar Disorder: Yes Anxiety: Yes Depression: Yes Cancer: No Cardiovascular Problems: No COPD: No Cerebrovascular Accident: No Diabetes: No Diminished Hearing: No Endocrine: No Gastrointestinal Disorders: No Genitourinary: No Headaches: No Immune Disorder: No Implanted Vascular Access Dvce: No Musculoskeletal: Yes (HX FX PELVIS, FX RIGHT ARM) Neurologic: No Psychiatric: Yes Reproductive: No Respiratory: No Integumentary: Yes (CONTACT DERMATITIS) Migraines: No Pneumonia: Yes Seizures: No Sickle Cell Disease: No Sleep Apnea: No Thyroid Disease: No Past Surgical History Abdominal Surgery: No Cardiac Surgery: No Ear Surgery: No Endocrine Surgery: No Eye Surgery: No Genitourinary Surgery: No Gynecologic Surgery: No Insulin Pump: No Neurologic Surgery: No Oral Surgery: No Thoracic Surgery: No Other Surgery: Yes Social History Alcohol Use: No (DENIES) Tobacco Use: Yes Substance Use: No (DENIES) Allergies-Medications (Allergen,Severity, Reaction): Coded Allergies: No Known Allergies (Verified Allergy, Unknown, 10/26/17) Reported Meds & Prescriptions Reported Meds & Active Scripts Active Seroquel (Quetiapine Fumarate) 300 Mg Tab 300 Mg PO HS 15 Days [place] Carbonate ER ([place] Carbonate) 300 Mg Tab 600 Mg PO HS 15 Days [place] Carbonate ER ([place] Carbonate) 450 Mg Tab 450 Mg PO DAILY 15 Days Seroquel (Quetiapine Fumarate) 25 Mg Tab 50 Mg PO HS PRN 15 Days Seroquel (Quetiapine Fumarate) 25 Mg Tab 50 Mg PO DAILY 15 Days Lisinopril 5 Mg Tab 5 Mg PO DAILY 15 Days Metoprolol Tartrate 25 Mg Tab 12.5 Mg PO Q12HR 15 Days Review of Systems Except as stated in HPI: all other systems reviewed are Neg Psychiatric: Positive: Anxiety, Depression, Mood Disorder, No: Suicidal Ideations, Homicidal Ideation Physical Exam Narrative GENERAL: Awake and alert. SKIN: Warm and dry. HEAD: Normocephalic/atraumatic. EYES: Pupils are equal. Extraocular movements are intact. NECK: Normal range of motion. CARDIOVASCULAR: Regular rate and rhythm. RESPIRATORY: Nonlabored respirations. MUSCULOSKELETAL: Atraumatic. NEUROLOGICAL: Nonfocal. PSYCHIATRIC: Lucid. Tremulous. Data Data Last Documented VS Vital Signs Date Time Temp Pulse Resp B/P (MAP) Pulse Ox O2 Delivery O2 Flow Rate FiO2 11/04/17 11:17 98.3 91 18 142/85 (104) 96 Orders Orders Basic Metabolic Panel (Bmp) (11/04/17 11:51) Complete Blood Count With Diff (11/04/17 11:51) Drug Screen, Random Urine (11/04/17 11:51) Psych Screen (11/04/17 11:51) [place] (Li) (11/04/17 12:00) Labs Laboratory Tests Test 11/04/17 12:00 11/04/17 12:57 White Blood Count 8.7 TH/MM3 Red Blood Count 4.60 MIL/MM3 Hemoglobin 15.1 GM/DL Hematocrit 43.6 % Mean Corpuscular Volume 94.8 FL Mean Corpuscular Hemoglobin 32.8 PG Mean Corpuscular Hemoglobin Concent 34.7 % Red Cell Distribution Width 12.5 % Platelet Count 154 TH/MM3 Mean Platelet Volume 9.4 FL Neutrophils (%) (Auto) 72.9 % Lymphocytes (%) (Auto) 16.8 % Monocytes (%) (Auto) 8.6 % Eosinophils (%) (Auto) 1.4 % Basophils (%) (Auto) 0.3 % Neutrophils # (Auto) 6.3 TH/MM3 Lymphocytes # (Auto) 1.5 TH/MM3 Monocytes # (Auto) 0.7 TH/MM3 Eosinophils # (Auto) 0.1 TH/MM3 Basophils # (Auto) 0.0 TH/MM3 CBC Comment DIFF FINAL Differential Comment Blood Urea Nitrogen 7 MG/DL Creatinine 0.72 MG/DL Random Glucose 84 MG/DL Calcium Level 9.2 MG/DL Sodium Level 136 MEQ/L Potassium Level 3.9 MEQ/L Chloride Level 102 MEQ/L Carbon Dioxide Level 28.4 MEQ/L Anion Gap 6 MEQ/L Estimat Glomerular Filtration Rate 111 ML/MIN [place] Level 1.0 MEQ/L MDM Medical Decision Making Medical Screen Exam Complete: Yes Emergency Medical Condition: Yes Medical Record Reviewed: Yes (patient was discharged from here on about November 01 with prescriptions for lithium, Seroquel, lisinopril and metoprolol.) Differential Diagnosis My differential diagnosis includes but is not limited to noncompliance, substance abuse, exacerbation of bipolar disorder Narrative Course Patient presents complaining with insomnia and a depressed mood, affect of interest in activities and feeling anxious and tremulous. He was just hospitalized in the psych unit. He reports compliance with his medications. I will check a lithium level along with other routine labs. Drug screen is been ordered. CBC & BMP Diagram 11/04/17 12:00 Calcium Level 9.2 [place] level 1.0 (therapeutic) The patient has been evaluated by psychiatry. She has identified a few possible causes for his insomnia. He is drinking a lot of Pepsi later in the day. He is trying to sleep with his television on. The patient does not meet any criteria for psychiatric admission. Diagnosis Primary Impression: Bipolar disorder Qualified Codes: F31.9 - Bipolar disorder, unspecified Additional Instructions: Keep your follow-up appointment. Stop drinking caffeinated beverages earlier in the day. Do not try to sleep with your TV on. Disposition: 01 DISCHARGE HOME Condition: Stable Akanksha Flores MD Nov 04, 2017 12:09
[2017-11-04 12:36] LABS: AUTOMATED NEUTROPHIL # 6.3 TH/MM3 (1.8-7.7); BASOPHIL % 0.3 % (0.0-2.0); EOSINOPHIL # 0.1 TH/MM3 (0-0.4); EOSINOPHIL % 1.4 % (0.0-4.0); HEMATOCRIT 43.6 % (39.0-51.0); HEMOGLOBIN 15.1 GM/DL (13.0-17.0); LYMPH % 16.8 % (9.0-44.0); LYMPHOCYTE # 1.5 TH/MM3 (1.0-4.8); MEAN CELL VOLUME 94.8 FL (80.0-100.0); MEAN CORPUSCULAR HEMOGLOBIN 32.8 PG (27.0-34.0); MEAN CORPUSCULAR HGB CONC 34.7 % (32.0-36.0); MEAN PLATELET VOLUME 9.4 FL (7.0-11.0); MONO % 8.6 % (0.0-8.0); MONOCYTE # 0.7 TH/MM3 (0-0.9); NEUT % 72.9 % (16.0-70.0); PLATELET COUNT 154 TH/MM3 (150-450); RED CELL DISTRIBUTION WIDTH 12.5 % (11.6-17.2); WHITE BLOOD COUNT 8.7 TH/MM3 (4.0-11.0)
[2017-11-04 12:55] LABS: BICARBONATE 28.4 MEQ/L (21.0-32.0); CALCIUM 9.2 MG/DL (8.5-10.1); CREATININE 0.72 MG/DL (0.60-1.30)
--- NOTE | 2017-11-04 13:21 | PD ---
History of Present Illness Chief Complaint: Adjustment disorder Time Seen by Provider: 13:12 Travel History International Travel<30 Days: No Contact w/Intl Traveler<30days: No Known affected area: No Legal Status Legal Status: Voluntary History of Present Illness: This is a 62-year-old single, male who presents voluntarily to the emergency room with reports of insomnia. Patient was discharged after a week long inpatient admission 3 days ago. He was sent home with prescriptions for Seroquel 300 mg before bedtime as well as a follow-up appointment on Monday. Patient advises that the Seroquel is "not working". He is alert and oriented 4. His speech is clear, organized, and logical. His mood is good and his affect is euthymic. He denies suicidal ideation, homicidal ideation, visual or auditory hallucinations. He exhibits no delusional symptoms. However, he does advise that he drinks caffeinated beverages throughout the day, watches TV in bed all night, and takes the Seroquel at the same time as he is going to bed. Discussed at length good sleep hygiene with patient. Advised him to stop drinking the caffeinated beverages at noon, turn the TV off at night, and to take his medication approximately 1 hour before he plans on retiring for the evening. Additionally, patient was advised to keep his follow-up appointment with outpatient. The ER nurse advised patient had made the statement that the "Seroquel is not working but, the Ativan I had while I was here worked really well". Patient advised this provider would not be prescribing him Ativan. Patient has no other complaints and will be discharged to home. PFSH Past Medical History Asthma: No Autoimmune Disease: No Blood Disorders: No Bipolar Disorder: Yes Anxiety: Yes Depression: Yes Cancer: No Cardiovascular Problems: No COPD: No Cerebrovascular Accident: No Diabetes: No Diminished Hearing: No Endocrine: No Gastrointestinal Disorders: No Genitourinary: No Headaches: No Immune Disorder: No Implanted Vascular Access Dvce: No Musculoskeletal: Yes (HX FX PELVIS, FX RIGHT ARM) Neurologic: No Psychiatric: Yes Reproductive: No Respiratory: No Integumentary: Yes (CONTACT DERMATITIS) Migraines: No Pneumonia: Yes Seizures: No Sickle Cell Disease: No Sleep Apnea: No Thyroid Disease: No Past Surgical History Abdominal Surgery: No Cardiac Surgery: No Ear Surgery: No Endocrine Surgery: No Eye Surgery: No Genitourinary Surgery: No Gynecologic Surgery: No Insulin Pump: No Neurologic Surgery: No Oral Surgery: No Thoracic Surgery: No Other Surgery: Yes Psychiatric History Psychiatric History Last inpatient admission was at this facility for approximately 1 week patient was discharged 3 days ago. Hx Psychiatric Treatment: Bipolar History of Inpatient Treatment: Yes Social History Lives with mother and sister. Reports that they "get along fine". Toxicology screen positive for cannabinoids. Hx Alcohol Use: No (DENIES) Hx Tobacco Use: Yes Hx Substance Use: Yes Substance Use Type: Marijuana Hx of Substance Use Treatment: No Allergies-Medications (Allergen,Severity, Reaction): Coded Allergies: No Known Allergies (Verified Allergy, Unknown, 10/26/17) Reported Meds & Prescriptions Reported Meds & Active Scripts Active Seroquel (Quetiapine Fumarate) 300 Mg Tab 300 Mg PO HS 15 Days [place] Carbonate ER ([place] Carbonate) 300 Mg Tab 600 Mg PO HS 15 Days [place] [facility] ([place] Carbonate) 450 Mg Tab 450 Mg PO DAILY 15 Days Seroquel (Quetiapine Fumarate) 25 Mg Tab 50 Mg PO HS PRN 15 Days Seroquel (Quetiapine Fumarate) 25 Mg Tab 50 Mg PO DAILY 15 Days Lisinopril 5 Mg Tab 5 Mg PO DAILY 15 Days Metoprolol Tartrate 25 Mg Tab 12.5 Mg PO Q12HR 15 Days Mental Status Examination Appearance: Appropriate Consciousness: Alert Orientation: x4 Motor Activity: Normal gait Speech: Unremarkable Language: Adequate Fund of Knowledge: Adequate Attention and Concentration: Adequate Memory: Unremarkable Mood: Appropriate, Good Affect: Appropriate, Euthymic Thought Process & Associations: Intact, Logical Thought Content: Appropriate Hallucination Type: None Delusion Type: None Suicidal Ideation: No Suicidal Plan: No Suicidal Intention: No Homicidal Ideation: No Homicidal Plan: No Homicidal Intention: No Insight: Adequate MDM Medical Decision Making Medical Record Reviewed: Yes Assessment/Plan 62-year-old single, male who presents voluntarily to the emergency department with reports of insomnia. Patient was discharged from this facility 3 days ago after an approximate one-week stay on the inpatient psych unit. He was discharged on Seroquel p.o. 300 mg at bedtime. He was also educated on good sleep hygiene. Today patient is alert and oriented 4. His speech is clear, logical, and organized. His mood is good and his affect is euthymic. He denies any thoughts of harming himself, anyone else, visual or auditory hallucinations. He is not delusional at this time. Upon interview, patient relates that he has not followed good sleep hygiene habits per the education he received during his admission. Reviewed with patient the good habits necessary for good night sleep. This patient does not meet [place] act nor inpatient admission criteria. He was advised to practice good sleep hygiene as discussed and follow-up outpatient on Monday at his scheduled appointment. Additionally, patient was advised that he can increase the Seroquel at night and 50 mg increments per night prior to the appointment. Orders Orders Basic Metabolic Panel (Bmp) (11/04/17 11:51) Complete Blood Count With Diff (11/04/17 11:51) Drug Screen, Random Urine (11/04/17 11:51) Psych Screen (11/04/17 11:51) [place] (Li) (11/04/17 12:00) Results Vital Signs Date Time Temp Pulse Resp B/P (MAP) Pulse Ox O2 Delivery O2 Flow Rate FiO2 11/04/17 11:17 98.3 91 18 142/85 (104) 96 Laboratory Tests Test 11/04/17 12:00 11/04/17 12:57 White Blood Count 8.7 Red Blood Count 4.60 Hemoglobin 15.1 Hematocrit 43.6 Mean Corpuscular Volume 94.8 Mean Corpuscular Hemoglobin 32.8 Mean Corpuscular Hemoglobin Concent 34.7 Red Cell Distribution Width 12.5 Platelet Count 154 Mean Platelet Volume 9.4 Neutrophils (%) (Auto) 72.9 Lymphocytes (%) (Auto) 16.8 Monocytes (%) (Auto) 8.6 Eosinophils (%) (Auto) 1.4 Basophils (%) (Auto) 0.3 Neutrophils # (Auto) 6.3 Lymphocytes # (Auto) 1.5 Monocytes # (Auto) 0.7 Eosinophils # (Auto) 0.1 Basophils # (Auto) 0.0 CBC Comment DIFF FINAL Differential Comment Blood Urea Nitrogen 7 Creatinine 0.72 Random Glucose 84 Calcium Level 9.2 Sodium Level 136 Potassium Level 3.9 Chloride Level 102 Carbon Dioxide Level 28.4 Anion Gap 6 Estimat Glomerular Filtration Rate 111 Diagnosis Primary Impression: Adjustment disorder Psychiatrically Cleared: Yes Meri Costa Nov 04, 2017 13:21
== END 2017-11-04 15:03 | disposition home or self-care (01) ==
LOC: NEPD 11:11
DX: F43.20 Adjustment disorder, unspecified (principal); F31.9 Bipolar disorder, unspecified; F41.9 Anxiety disorder, unspecified; G47.00 Insomnia, unspecified; Z79.899 Other long term (current) drug therapy; Z72.0 Tobacco use
CPT/HCPCS: 80048; 80178; 85025; 99283